=== PATIENT | female | born 1965 | race African-American/Black ===

== ENCOUNTER 2017-03-03 10:21 | Day surgery (SDC) | payer OTHER ==
[~2017-03-03 10:21] MED LIST: PHENYLEPHRINE 2.5% OPHTH 2 ML DROPS ONE
[2017-03-03] MEDS ORDERED: fentaNYL 100 MCG/2 ML VIAL IVP ONE (10:30)
[2017-03-03] MEDS ORDERED: MIDAZOLAM 2 MG/2 ML VIAL IVP ONE (10:30)
[2017-03-03] MEDS ORDERED: LACTATED RINGERS 1,000 ML IV ONE (11:02)
== END 2017-03-03 10:22 | disposition home or self-care (01) ==
PROC: 0DBH8ZX Excision of Cecum, Via Natural or Artificial Opening Endoscopic, Diagnostic (ICD-10-PCS; principal; 2017-03-03 11:30)
DX: Z12.11 Encounter for screening for malignant neoplasm of colon (principal); D12.0 Benign neoplasm of cecum; K64.4 Residual hemorrhoidal skin tags; E66.9 Obesity, unspecified; Z68.41 Body mass index [BMI] 40.0-44.9, adult
CPT/HCPCS: 45380; J7120

== ENCOUNTER 2018-03-20 07:35 | Emergency (ER) | payer OTHER ==
--- NOTE | 2018-03-20 08:19 | ED Physician Documentation ---
PD HPI CHEST PAIN - Stated complaint Stated Complaint: CHEST PX - Chief complaint Chief Complaint: Cardiac - History obtained from History obtained from: Patient - History of Present Illness Timing - onset: How many days ago (10) Timing - onset during: Rest Timing - duration: Days (10) Timing - details: Gradual onset, Still present Quality: Pressure, Tightness, Sharp Location: Left chest Radiation: Neck, Left upper extremity Improved by: Rest Worsened by: Movement, Palpation, Position. No: Exertion Associated symptoms: Shortness of air, Nausea. No: Diaphoresis, Vomiting, Feeling faint / dizzy, General Weakness, Palpitations, Cough Similar symptoms before: Has not had sx before Recently seen: Not recently seen - Additional information Additional information: 52 y/o female with a prior history of a left parotid gland tumor removal has developed pain in the left anterior chest that is worse with movement and has persisted and worsened over the past week. She has come in today with persistent worsening pain. She has a partial left facial droop that is present since her parotid tumor removal and this is usually worse with stress and fatigue. She also will slur her speech from similar and this has occurred as well. She has noticed fatigue and night sweats and she feels she may be somewhat short of breath today but she feels this may be due to anxiety. She has not found exertion to make symptoms worse. She does find symptoms are worse with movement of the arm and palpation. Review of Systems Constitutional: reports: Sweats. denies: Fever, Chills Eyes: denies: Decreased vision Ears: denies: Ear pain Nose: denies: Rhinorrhea / runny nose, Congestion Throat: denies: Sore throat Cardiac: reports: Chest pain / pressure. denies: Palpitations, Pedal edema, Calf pain Respiratory: reports: Dyspnea. denies: Cough, Wheezing GI: reports: Nausea. denies: Abdominal Pain, Vomiting, Constipation, Diarrhea : denies: Dysuria, Frequency Skin: denies: Rash Musculoskeletal: reports: Neck pain, Extremity pain. denies: Back pain Neurologic: denies: Generalized weakness, Focal weakness, Numbness PD PAST MEDICAL HISTORY - Past Medical History Past Medical History: Yes Cardiovascular: None Respiratory: None Neuro: None Endocrine/Autoimmune: None GI: None SINKER WINDER: None : None HEENT: Chronic vision loss Psych: None Musculoskeletal: None Derm: None - Past Surgical History Past Surgical History: Yes /SINKER WINDER: section, Dilation and currettage, Tubal ligation - Present Medications Home Medications: Ambulatory Orders Medication Instructions Recorded Confirmed No Known Home Medications [No 03/20/18 03/20/18 Known Home Medications] - Allergies Allergies/Adverse Reactions: Allergies Allergy/AdvReac Type Severity Reaction Status Date / Time No Known Drug Allergies Allergy Verified 03/20/18 07:52 - Social History Does the pt smoke?: No Smoking Status: Never smoker Does the pt drink ETOH?: Yes Does the pt have substance abuse?: No - Immunizations Immunizations are current?: Yes - POLST Patient has POLST: No PD ED PE NORMAL - Vitals Vital signs reviewed: Yes (hypertensive ) - General General: Alert and oriented X 3, No acute distress, Well developed/nourished - HEENT HEENT: Atraumatic, PERRL, EOMI - Neck Neck: Supple, no meningeal sign - Cardiac Cardiac: RRR, No murmur, No gallop - Respiratory Respiratory: No respiratory distress, Clear bilaterally, Other (There is tenderness to the anterior left chest wall below the clavicle. There is pain to this area with movement of the left arm pain radiates into the neck and down the arm. 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, No motor deficit, No sensory deficit, Normal speech Eye Opening: Spontaneous Motor: Obeys Commands Verbal: Oriented GCS Score: 15 - Psych Psych: Normal mood, Normal affect Results - Vitals Vitals: Vital Signs - 24 hr 03/20/18 07:38 Temperature 36.6 C Heart Rate 82 Respiratory 18 Rate Blood Pressure 148/87 H O2 Saturation 98 Oxygen O2 Source Room air - EKG (time done) 0745 Rate: Rate (enter#) (87) Rhythm: NSR, LAE Compare to prior EKG: Old EKG unavailable Computer interpretation: Agree with computer - Labs Labs: Laboratory Tests 03/20/18 03/20/18 03/20/18 08:27 08:27 08:27 WBC 6.6 RBC 4.16 L Hgb 12.3 Hct 37.2 MCV 89.4 MCH 29.6 MCHC 33.1 RDW 12.8 Plt Count 308 MPV 7.8 L Neut # 3.3 Lymph # 2.7 [place] # 0.4 Eos # 0.2 Baso # 0.0 Absolute Nucleated RBC 0.00 Nucleated RBC % 0.1 Sodium 138 Potassium 3.8 Chloride 102 Carbon Dioxide 26 Anion Gap 10.0 BUN 12 Creatinine 0.8 Estimated GFR (MDRD) 91 Glucose 158 H Calcium 9.1 Total Bilirubin 0.6 AST 44 H ALT 48 Alkaline Phosphatase 93 Total Creatine Kinase 371 H CK-MB (CK-2) 3.0 Troponin I < 0.04 Total Protein 7.7 Albumin 3.9 Globulin 3.8 Albumin/Globulin Ratio 1.0 Lipase 30 - Rads (name of study) CXR Radiology: Prelim report reviewed (Impression: Normal chest for age and body size. No pneumonia, CHF or other demonstrate a cause for the patient's symptoms.), EMP read indepedently, See rad report PD MEDICAL DECISION MAKING - ED course Complexity details: reviewed old records, reviewed results, re-evaluated patient , considered differential, d/w patient, d/w family ED course: 52 y/o female with left anterior chest wall pain has elevated CPK and the remainder of her work up is unremarkable. She has chest wall tenderness and pain with movement of the left arm, the neck or twisting the trunk. She cannot recall any specific event that would have caused this pain. She is diagnosed with a chest wall strain and she does not feel that pain medication is needed. She was able to sleep well last night after taking some aspirin. She is treated in the ED with decadron and toradal. Departure - Departure Disposition: 01 Home, Self Care Clinical Impression: Chest wall pain Condition: Stable Instructions: ED Strain Chest Wall Follow-Up: HENRIQUE Mahoney [Provider Group] Comments: Today in the Emergency Department your blood pressure was elevated. This can happen from the stress of the visit itself, from a current illness or circumstance or from uncontrolled hypertension. If you take blood pressure medications take your usual mediations, have your blood pressure re-checked in an appropriate setting and follow up any elevation with your primary care doctor.
[2018-03-20 08:35] LABS: BASOPHILS % (AUTO) 0.8 %; EOSINOPHILS # (AUTO) 0.2 10^3/uL (0.0-0.7); EOSINOPHILS % (AUTO) 2.7 %; HGB - HEMOGLOBIN 12.3 g/dL (12.0-16.0); LYMPHOCYTES # (AUTO) 2.7 10^3/uL (1.5-3.5); LYMPHOCYTES % (AUTO) 40.6 %; MEAN CORPUSCULAR HEMOGLOBIN 29.6 pg (27.0-31.0); MEAN CORPUSCULAR HGB CONC 33.1 g/dL (32.0-36.0); MEAN CORPUSCULAR VOLUME 89.4 fL (81.0-99.0); MEAN PLATELET VOLUME 7.8 fL (7.9-10.8); MONOCYTES # (AUTO) 0.4 10^3/uL (0.0-1.0); MONOCYTES % (AUTO) 5.9 %; NEUTROPHILS # (AUTO) 3.3 10^3/uL (1.5-6.6); PLT - PLATELET COUNT 308 10^3/uL (130-450); RED BLOOD COUNT 4.16 10^6/uL (4.20-5.40); RED CELL DISTRIBUTION WIDTH 12.8 % (12.0-15.0); WHITE BLOOD COUNT 6.6 x10^3/uL (4.8-10.8)
[2018-03-20 08:46] LABS: ALBUMIN 3.9 g/dL (3.2-5.5); BILIRUBIN,TOTAL 0.6 mg/dL (0.2-1.0); CALCIUM 9.1 mg/dL (8.5-10.3); CREATININE 0.8 mg/dL (0.4-1.0); TOTAL PROTEIN 7.7 g/dL (6.7-8.2)
[2018-03-20 08:53] LABS: TROPONIN I < 0.04 ng/mL (<0.49)
[2018-03-20] MEDS ORDERED: KETOROLAC 60 MG/2 ML VIAL IVP STA (09:13)
--- NOTE | 2018-03-20 09:16 | XRAY Report ---
EXAM: CHEST RADIOGRAPHY, 2 VIEWS EXAM DATE: 03/20/2018 08:58 AM. CLINICAL HISTORY: Left superior anterior chest pain over the past week, worsening over the past 24 ho urs, in a 52-year-old female. COMPARISON: None. TECHNIQUE: Upright PA and lateral views. FINDINGS: Lungs/Pleura: No focal opacities evident. No pleural effusion. No pneumothorax. Normal volumes. Mediastinum: Heart and mediastinal contours are unremarkable. No pulmonary vascular congestion or debora nopathy. Other: Trachea is midline. Osseous structures are unremarkable. IMPRESSION: Normal chest for age and body size. No pneumonia, CHF or other demonstrated cause for the patient's symptoms. [facility] Referring Provider Line: [phone] SITE ID: [id number]
[2018-03-20 10:29] VITALS: BP 145/98
== END 2018-03-20 10:29 | disposition home or self-care (01) ==
LOC: ED 07:35
DX: R07.89 Other chest pain (principal); R79.9 Abnormal finding of blood chemistry, unspecified
CPT/HCPCS: 36415; 71046; 80053; 82550; 82553; 83690; 84484; 85025; 93005; 96374; 99283

== ENCOUNTER 2020-07-01 12:53 | Outpatient (CLI) | payer OTHER | END 2020-07-01 12:54 | disposition home or self-care (01) | LOC: COV 12:53 | PROVIDERS: ATTEND Family Medicine | DX: R05 Cough (principal); M79.10 Myalgia, unspecified site; R53.83 Other fatigue; R19.7 Diarrhea, unspecified; R09.81 Nasal congestion; Z20.828 Contact with and (suspected) exposure to other viral communicable diseases ==

== ENCOUNTER 2020-10-13 17:15 | Outpatient (CLI) | payer OTHER | END 2020-10-13 17:16 | disposition home or self-care (01) | LOC: COV 17:15 | PROVIDERS: ATTEND Family Medicine | DX: R05 Cough (principal); R06.02 Shortness of breath; M79.10 Myalgia, unspecified site; R53.83 Other fatigue; R19.7 Diarrhea, unspecified; R09.81 Nasal congestion; J34.89 Other specified disorders of nose and nasal sinuses; Z20.828 Contact with and (suspected) exposure to other viral communicable diseases ==